=== PATIENT | female | born 1995 | race African-American/Black ===

== ENCOUNTER 2021-09-17 17:56 | Emergency (ER) | payer OTHER, SELFPAY ==
--- NOTE | ~2021-09-17 | CT_ITS ---
EXAMINATION: CT abdomen pelvis w con DATE: 09/17/2021 22:04 INDICATION: Abdominal pain, nausea and vomiting TECHNIQUE: Computed tomography (CT) of the abdomen and pelvis was performed with 100 cc Omnipaque 350 intravenous contrast. Automated exposure control and iterative reconstruction technique were employe d. Exam dose: 244.59 mGy-cm total exam DLP. COMPARISON: None. FINDINGS: Normal heart size. No pericardial or pleural effusion. The lung bases are clear. The liver, gallbladder, bile ducts, spleen, pancreas, pancreatic duct, and adrenal glands and kidneys appear normal. Normal caliber of the abdominal aorta. No intraperitoneal or retroperitoneal or pelvi c mass lesion or adenopathy or ascites. There is moderate diffuse thickening of the urinary bladder wall. Cystitis is not excluded. There is an involuting 3 cm peripherally enhancing right ovarian cyst with moderate amount of complic ated free fluid in the posterior cul-de-sac, extending into the adnexal areas, likely due to ruptured ovarian cyst. Less likely considerations include ruptured ectopic , pelvic inflammatory dis ease. No bowel obstruction or intraperitoneal free air. Included skeletal structures are unremarkable. IMPRESSION: Probable ruptured involuting right ovarian cyst with associated moderate free fluid in t he cul-de-sac extending into the adnexal areas Reviewed, dictated and finalized at [facility] Reviewed, dictated and finalized at [facility]. 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
[2021-09-17 18:06] VITALS: BP 109/64; PULSE 118; RESP 18; TEMP 37.1; O2SAT 100
--- NOTE | 2021-09-17 18:48 | ED.GENADULT ---
HPI - General Adult General Chief complaint: Nausea/Vomiting/Diarrhea Stated complaint: N/V Time Seen by Provider: 09/17/21 18:12 Source: RN notes reviewed History of Present Illness HPI narrative: Patient presents emergency room from home for nausea vomiting diarrhea. Patient states symptoms began this morning with numerous episodes of nausea vomiting as well as diarrhea. Patient states that it is associated with lower abdominal pain described as cramping she denies any fevers or chills chest pain or shortness of breath. States she not taking thing for the symptoms at home Related Data Home Medications Medication Instructions Recorded Confirmed No Home Medications 09/17/21 09/17/21 Allergies Allergy/AdvReac Type Severity Reaction Status Date / Time No Known Allergies Allergy Verified 09/17/21 18:05 Review of Systems Review of Systems: Gen.: Denies fevers or chills ENT: Denies congestion Respiratory: Denies shortness of breath or cough CV: Denies chest pain or palpitations GI: See HPI denies burning, urgency, frequency or hematuria Musculoskeletal: Denies back pain or muscle pain Neuro: Denies numbness, tingling, weakness or focal weakness Skin: Denies rash Except as documented, all other systems reviewed and negative [facility] Past Medical History Medical History (Updated 09/18/21 @ 00:00 by Chas Ortiz DO) Patient denies significant medical history Social History Social History Smoking status: Never smoker Alcohol intake: never Exam Narrative: APPEARANCE: No acute distress, nontoxic, resting in bed EYES: EOMI HEENT: Normocephalic, atraumatic, OMM RESPIRATORY: No respiratory distress Clear to auscultation bilaterally with no rhonchi wheezing or rales. CARDIOVASCULAR: Regular rate and rhythm without murmurs rubs or gallops. ABDOMINAL: Soft, nondistended tender to palpation right lower quadrant left lower quadrant tenderness right upper quadrant left upper quadrant rebound or guarding MUSCULOSKELETAl: Moves all extremities. No clubbing, cyanosis or edema. NEURO: Awake and alert. Following commands, speech normal, no focal deficits SKIN:: Warm, dry. No rashes lesions or abrasions PSYCHIATRIC: Normal affect/mood, Course Course Emergency Course: Patient didn't remain with mild sinus tachycardia in the low 100s to 100 105 she had been hydrated in the ED EKG shows sinus tachycardia with no abnormalities patient has no chest pain or shortness of breath only other vital signs from 2016 recommend the patient follow-up PCP her abdominal pain has resolved she is able to drink in the ED with no difficulty Patient states that they are feeling much better at this time. States abdominal pain has resolved. Repeat abdominal exam shows the patient's abdomen to be soft and nontender. Discussed with patient results of workup and diagnosis. Discussed need for follow-up with primary care physician, reasons to return to the emergency department in proper use of medication. Patient understands and agrees to current treatment plan Vital Signs Vital signs: Vital Signs Temperature 98.8 F 09/17/21 18:06 Pulse Rate 118 H 09/17/21 18:06 Respiratory Rate 18 09/17/21 18:06 Blood Pressure 109/64 09/17/21 18:06 Pulse Oximetry 100 09/17/21 18:06 Temperature 98.0 F 09/18/21 01:03 Pulse Rate 99 09/18/21 01:03 Respiratory Rate 12 09/18/21 01:03 Blood Pressure 112/67 09/18/21 01:03 Pulse Oximetry 100 09/18/21 01:03 Medical Decision Making MDM Narrative Medical decision making narrative: Patient's abdomen is soft without significant pain or signs of surgical abdomen on serial exams. Lab and x-ray evaluations are reviewed and patient is felt to be a reasonable candidate for outpatient management. Patient was instructed as to limitations of x-ray and laboratory evaluation and encouraged to return to ED or primary physician for repeat exam in 12 h
[2021-09-17] MEDS: SODIUM CHLORIDE 0.9% IV 1,000 ML 999 ML IV CONT ×3 (19:09→22:17)
[2021-09-17] MEDS: ONDANSETRON INJ 4 MG/2 ML VIAL IV PUSH (19:11)
[2021-09-17] MEDS: FAMOTIDINE 20 MG/2 ML VIAL IV PUSH (19:12)
[2021-09-17] MEDS: KETOROLAC 30 MG/ML VIAL (*BKC) IV PUSH (19:13)
--- NOTE | 2021-09-17 19:26 | PC.NURSE ---
called lab requesting them to receive blood work and run a CBC, CMP and lipase on pt. states they will run it.
[2021-09-17 19:33] LABS: Eosinophils Percent Auto 0.2 % (0-4.4); Hematocrit 38.9 % (37.0-47.0); Hemoglobin 12.7 g/dL (12.0-15.0); Immature Granulocyte Absolute 0.02 K/mm3 (0.00-0.031); Immature Granulocyte Percent A 0.4 % (0-0.5); Lymphocytes Absolute Auto 0.43 K/mm3 (0.9-3.2); Lymphocytes Percent Auto 9.1 % (18.3-44.2); Mean Corpuscular HGB Conc 32.6 g/dl (32-36); Mean Corpuscular Hemoglobin 27.4 pg (26-34); Mean Corpuscular Volume 83.8 fl (80-100); Mean Platelet Volume 11.1 fl (7.4-10.4); Monocytes Absolute Auto 0.3 K/mm3 (0.1-0.6); Monocytes Percent Auto 5.5 % (2.6-8.5); Neutrophils Percent Auto 84.8 % (45.5-73.1); Platelet Count Result 206 k/mm3 (150-375); Red Blood Count 4.64 M/mm3 (4.2-5.4); Red Cell Distribution Width 13.6 % (11.5-14.5); White Blood Count 4.7 K/mm3 (4.5-10.0)
[2021-09-17 19:38] LABS: Alanine Aminotransferase 15 U/L (4-35); Albumin Level 4.6 g/dL (3.5-5.1); Alkaline Phosphatase 70 U/L (38-126); Anion Gap 9 mmol/L (8-16); Aspartate Amino Transferase 32 U/L (14-36); Bilirubin,Total 0.6 mg/dL (0.2-1.3); Blood Urea Nitrogen 8 mg/dL (7-17); Calcium 9.1 mg/dL (8.4-10.2); Carbon Dioxide 23 mmol/L (22-30); Chloride 104 mmol/L (98-107); Estimated CRCL calculation 106 ml/min; Estimated Glomerular Filt Rate > 60; Glucose 101 mg/dL (65-110); Lipase 139 U/L (23-300); Potassium 3.8 mmol/L (3.4-5.0); Sodium 136 mmol/L (137-145)
--- NOTE | 2021-09-17 20:25 | PC.NURSE ---
Called lab to inform that the urine specimen has been sent and should be down in the lab. They stated they will run it.
--- NOTE | 2021-09-17 21:15 | PC.NURSE ---
Called lab again to see why urine has not resulted. They stated they will run it.
[2021-09-17 21:32] LABS: Add Urine Microscopic? YES; Appearance Urine Clear (Clear); Bilirubin Urine Negative (Negative); Blood Urine Negative (Negative); Color Urine Yellow (Yellow); Glucose Urine UA Negative (Negative); Ketones Urine 1+ mg/dL (Negative); Leukocyte Esterase Ur 2+ LEU/UL (Negative); Mucus Urine Rare /lpf; Nitrate Urine Negative (Negative); Protein Urine Negative (Negative); RBC Urine 0-2 /hpf (0-2); Specific Grav Ur 1.018 (1.001-1.035); Squamous Epithelial Cell Urine Few /hpf (Few); Urobilinogen Urine Negative mg/dL (<2.0)
[2021-09-17 21:43] VITALS: O2SAT 100
[2021-09-17 21:44] VITALS: O2SAT 100
[2021-09-17 21:45] VITALS: O2SAT 100
--- NOTE | 2021-09-17 22:08 | ECG_ITS ---
Measurements Intervals [place] Rate: 104 P: 77 TX: 196 QRS: 63 QRSD: 82 T: 45 QT: 330 QTc: 435 Interpretive Statements SINUS TACHYCARDIA RSR' IN V1 OR V2, PROBABLY NORMAL VARIANT NONSPECIFIC T-WAVE ABNORMALITY- INFERIOR LEADS BORDERLINE ECG Electronically Signed On 09-18-2021 7:07:35 RANGE TECHNICIAN by Fortino Whitlock D.O.
[2021-09-17] MEDS: MORPHINE SULFATE (*CRX) 4 MG/ML INJ IV PUSH (23:21)
[2021-09-18] MEDS: NITROFURANTOIN MONOHYD MACROCR 100 MG CAP PO (00:04)
[2021-09-18 00:17] VITALS: BP 112/67; PULSE 98; RESP 18; O2SAT 100
[2021-09-18 01:03] VITALS: BP 112/67; PULSE 99; RESP 12; TEMP 36.7; O2SAT 100
== END 2021-09-18 01:05 | disposition home or self-care (01) ==
PROVIDERS: Emergency Medicine; Emergency Provider Emergency Medicine; PCP Emergency Medicine
DX: N39.0 Urinary tract infection, site not specified (principal); N83.201 Unspecified ovarian cyst, right side; R11.2 Nausea with vomiting, unspecified; R10.9 Unspecified abdominal pain; R00.0 Tachycardia, unspecified; R94.31 Abnormal electrocardiogram [ECG] [EKG]
CPT/HCPCS: 36415; 74177; 80053; 81001; 81025; 83690; 85025; 93005; 96361; 96374; 96375; 99284; A9270; J1885; J2270; J2405; J7030; Q9967

== ENCOUNTER 2022-10-19 15:49 | Emergency (ER) | payer OTHER, SELFPAY ==
--- NOTE | ~2022-10-19 | XR_ITS ---
EXAMINATION: XR foot LT min 3V DATE: 10/19/2022 16:15 INDICATION: Left foot injury. TECHNIQUE: 4 views of left foot were obtained. COMPARISON: None. FINDINGS: Bone alignment is normal. No fracture. There is mild osteoarthritis of talonavicular joint. IMPRESSION: 1. No fracture. Reviewed, dictated and finalized at [facility]. 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 No fracture.
[2022-10-19 15:58] VITALS: BP 117/70; PULSE 100; RESP 14; TEMP 37.2; O2SAT 100
--- NOTE | 2022-10-19 16:35 | ED.LOWEXIN ---
HPI - Extremity Injury (Lower) General Chief Complaint: Extremity Injury, Lower Stated Complaint: Left Foot Pain Time Seen by Provider: 10/19/22 16:35 Source: patient, RN notes reviewed and old records reviewed Mode of arrival: ambulatory Limitations: no limitations History of Present Illness HPI Narrative: 27-year-old female presents to the [facility] with left toe pain on toes 1 2 and 5. Patient states a couple of days ago she scraped toes 1 and 2 on something and has abrasions. No swelling, erythema or bruising noted to them. States yesterday she hit her small toe on the corner of a wall, has bruising, swelling and part of the toenail is missing. No bleeding noted Onset (ago): day(s) Related Data Home Medications Medication Instructions Recorded Confirmed No Home Medications 09/17/21 10/19/22 Allergies Allergy/AdvReac Type Severity Reaction Status Date / Time No Known Allergies Allergy Verified 10/19/22 16:05 Review of Systems Review of Systems: All systems reviewed & are unremarkable except as noted in HPI and below Constitutional: Constitutional: Reports no additional constitutional complaints Eyes: Eyes: Reports no additional eye complaints ENT: Reports system reviewed and no additional complaints, except as documented Cardiovascular: Cardiovascular: Reports no additional cardiovascular complaints, Denies chest pain and Denies dyspnea Respiratory: Respiratory: Reports no additional respiratory complaints, Denies chest congestion, Denies cough and Denies dyspnea Gastrointestinal: Gastrointestinal: Reports no additional gastrointestinal complaints, Denies abdominal pain, Denies nausea and Denies vomiting Musculoskeletal: Musculoskeletal: Reports as per HPI Integumentary/Breasts: Skin/Breast: Reports as per HPI Neurologic: Reports system reviewed and no additional complaints, except as documented Psychiatric: Psychiatric: Reports no additional psychiatric complaints Allergic/Immunologic: Allergic/Immunologic: Reports no additional allergic/immunologic complaints [facility] Past Medical History Medical History Patient denies significant medical history Social History Social History Smoking status: Never smoker Alcohol intake: never Comments At the time of my signature, I reviewed and agree with the nursing past medical, surgical, social, and family history. There is no relevant family history pertinent to the patient complaint. Exam Const: General: cooperative, healthy appearing, comfortable, no acute distress, well developed, alert and well nourished Nutritional Appearance: well nourished Orientation/consciousness: patient oriented x3 Limitations: no limitations HENMT: Head: normal to inspection Ears: hearing grossly normal bilaterally and external ears normal Face/Nose/Sinus: Normal external nose present, Normal nares present, Normal nasal mucous membranes and turbinates present and normal facial exam Face and sinus: normal facial exam Mouth: Yes Normal oral and palatal mucosa present, Yes lip normal and Yes moist mucous membranes Eyes: General: appearance normal, both eyes and all related structures Alignment and Position: alignment normal Periorbital: periorbital findings normal Conjunctivae: conjunctivae normal Pupils: Equal, round and reactive pupils present EOM: EOMs intact bilaterally Neck: Neck: normal visual inspection, full ROM, no lymphadenopathy and no meningeal signs Chest: Chest palpation & inspection: normal inspection of the chest Resp: Effort & Inspection: normal respiratory effort and able to speak in complete sentences Auscultation: clear to auscultation bilaterally, no crackles, no rales, no rhonchi and no wheezes Cardio: Rate: regular rate Rhythm: regular rhythm Back/Spine/Pelvis: Cervical Spine: cervical ROM normal Thoracic/Lumbar Spine: No thoracic sp
== END 2022-10-19 16:55 | disposition home or self-care (01) ==
PROVIDERS: Emergency Provider Nurse Practitioner; PCP Emergency Medicine
DX: S90.412A Abrasion, left great toe, initial encounter (principal); S90.415A Abrasion, left lesser toe(s), initial encounter; X58.XXXA Exposure to other specified factors, initial encounter; S91.205A Unspecified open wound of left lesser toe(s) with damage to nail, initial encounter; W22.01XA Walked into wall, initial encounter
CPT/HCPCS: 73630; 99213; G0463

== ENCOUNTER 2023-01-26 01:41 | Emergency (ER) | payer OTHER, SELFPAY ==
--- NOTE | ~2023-01-26 | US_ITS ---
Pelvic ultrasound. Clinical History: First trimester , vaginal bleeding Technique: Realtime transabdominal and transvaginal scanning of the pelvis was performed. Color flow Doppler and Doppler spectral analysis were performed. Findings: The uterus is retroverted, and contains an intrauterine gestation. With yolk sac and pole are present. Sumpter-rump length of 5 mm corresponds to an estimated gestational age of 6 weeks 2 days. heart rate is 117 bpm. The right ovary measures 4.0 x 2.5 x 2.6 cm. No significant right ovarian or adnexal mass is seen. The left ovary measures 2.7 x 1.6 x 1.5 cm. No significant left ovarian or adnexal mass is seen. There is small amount of free fluid about the right ovary. Impression: Live intrauterine gestation with estimated gestational age of 6 weeks 2 days. heart rate is 117 bpm. Small amount of free fluid about the right ovary. Reviewed, dictated and finalized at [facility]. Impression: Live intrauterine gestation with estimated gestational age of 6 weeks 2 days. F etal heart rate is 117 bpm. Small amount of free fluid about the right ovary.
[2023-01-26 01:43] VITALS: BP 123/67; PULSE 92; RESP 14; TEMP 36.9; O2SAT 100
--- NOTE | 2023-01-26 01:57 | ED.PREGNANCY ---
HPI - General Chief complaint: Vaginal Bleeding Stated complaint: 6weeks , spotting, cramping Time Seen by Provider: 01/26/23 01:48 History of Present Illness HPI Narrative: 27-year-old female, who is currently 6 weeks , LMP 12/15, reports for evaluation of vaginal bleeding that started 5 hours prior to arrival. Patient reports the bleeding is light and has not required her to wear a pad. States she had some bleeding in her underwear but mostly it has been when she wipes and on toilet paper. She reports associated abdominal cramping earlier which has since resolved. Denies back pain, fever, vaginal discharge, concern for STDs, nausea or vomiting, diarrhea. She denies vaginal bleeding during her up until this point. Patient reports she has an appointment with her ACTIVITIES ASSISTANT in 2.5 weeks. Related Data Home Medications Medication Instructions Recorded Confirmed No Home Medications 09/17/21 10/19/22 Allergies Allergy/AdvReac Type Severity Reaction Status Date / Time No Known Allergies Allergy Verified 01/26/23 01:42 Review of Systems Review of Systems: CONSTITUTIONAL: Denies fever, chills EYES: Denies visual changes, redness, or discharge. ENT: Denies rhinorrhea, congestion, sore throat, or otalgia. CARDIOVASCULAR: Denies chest pain, palpitations, or edema. RESPIRATORY: Denies cough or dyspnea. GASTROINTESTINAL: See HPI GENITOURINARY: Denies dysuria or hematuria. SKIN: Denies rash or itching. MUSCULOSKELETAL: Denies back pain, joint pain, or myalgia. NEUROLOGIC: Denies headache, numbness, dizziness, or weakness. PSYCHIATRIC: Denies anxiety or depression. [facility] Past Medical History Medical History Patient denies significant medical history Social History Social History Smoking status: Never smoker Alcohol intake: never Exam Narrative: GENERAL: Well-appearing, in no acute distress. HEAD: Normocephalic EYES: PERRLA ENT: Nares clear. Mucous membranes moist. Oropharynx without tonsillar hypertrophy exudate or other lesions. NECK: Supple. CHEST: No respiratory distress. Clear to auscultation, no adventitious breath sounds. HEART: Regular rate and rhythm. No murmur heard. Normal peripheral pulses. ABDOMEN: Soft, nontender, normal active bowel sounds. LIGHT CLEANER: No rashes or lesions to external genitalia, vaginal canal or cervix. Scant amount of white discharge in vaginal canal, no blood. Cervical os closed. No CMT. No adnexal tenderness or masses appreciated. EXTREMITIES: Normal range of motion. No edema. SKIN: Warm, dry, no rash. NEURO: No focal deficits. Alert and oriented x3. PSYCH: Normal mood and affect. Course Vital Signs Vital signs: Vital Signs Temperature 36.9 C 01/26/23 01:43 Pulse Rate 92 01/26/23 01:43 Respiratory Rate 14 01/26/23 01:43 Blood Pressure 123/67 01/26/23 01:43 Pulse Oximetry 100 01/26/23 01:43 Oxygen Delivery Room Air 01/26/23 01:43 Temperature 36.9 C 01/26/23 01:43 Pulse Rate 92 01/26/23 01:43 Respiratory Rate 14 01/26/23 01:43 Blood Pressure 123/67 01/26/23 01:43 Pulse Oximetry 100 01/26/23 01:43 Oxygen Delivery Room Air 01/26/23 01:43 MDM - OB/Uterine Contractions MDM Narrative Medical decision making narrative: 27-year-old female, who is currently 6 weeks , LMP 12/15, reports for evaluation of vaginal bleeding that started 5 hours prior to arrival. Bleeding is light and has not required her to wear a pad. Vital stable. Exam reveals soft nontender abdomen. Pelvic exam with scant amount of white discharge in vaginal canal, no blood, cervical os closed. CBC shows a mild normocytic anemia with a hemoglobin of 11.4. Patient's blood type B+, therefore RhoGAM not needed. Coags normal. Beta hCG level 13,136. Ultrasound to evaluate for ectopic or
[2023-01-26 02:07] LABS: Basophils Percent Auto 0.6 % (0.2-1.2); Eosinophils Absolute Auto 0.1 K/mm3 (0-0.3); Eosinophils Percent Auto 1.7 % (0-4.4); Hematocrit 34.8 % (37.0-47.0); Hemoglobin 11.4 g/dL (12.0-15.0); Immature Granulocyte Absolute 0.02 K/mm3 (0.00-0.031); Immature Granulocyte Percent A 0.3 % (0-0.5); Lymphocytes Absolute Auto 2.47 K/mm3 (0.9-3.2); Lymphocytes Percent Auto 34.5 % (18.3-44.2); Mean Corpuscular HGB Conc 32.8 g/dl (32-36); Mean Corpuscular Hemoglobin 28.1 pg (26-34); Mean Corpuscular Volume 85.9 fl (80-100); Monocytes Absolute Auto 0.7 K/mm3 (0.1-0.6); Monocytes Percent Auto 9.6 % (2.6-8.5); Neutrophils Absolute Auto 3.8 K/mm3 (1.3-6.7); Neutrophils Percent Auto 53.3 % (45.5-73.1); Platelet Count Result 273 k/mm3 (150-375); Red Blood Count 4.05 M/mm3 (4.2-5.4); Red Cell Distribution Width 13.7 % (11.5-14.5); White Blood Count 7.2 K/mm3 (4.5-10.0)
[2023-01-26 02:40] LABS: Prothrombin Time 13.7 Seconds (11.1-14.7)
[2023-01-26 02:41] LABS: Partial Thromboplastin Time 27.9 SECONDS (22.3-36.8)
[2023-01-26] MEDS: SODIUM CHLORIDE 0.9% IV 1,000 ML 999 ML IV CONT (03:03)
== END 2023-01-26 05:00 | disposition home or self-care (01) ==
PROVIDERS: Physician Assistant; Emergency Provider Emergency Medicine; PCP Emergency Medicine
DX: O20.0 Threatened abortion (principal); Z3A.01 Less than 8 weeks gestation of pregnancy
CPT/HCPCS: 36415; 76801; 76817; 84702; 85025; 85461; 85610; 85730; 86850; 86900; 86901; 96360; 96361; 99284; J7030

== ENCOUNTER 2023-05-14 10:43 | Emergency (ER) | payer OTHER, SELFPAY ==
[2023-05-14 10:57] VITALS: BP 125/67; PULSE 128; RESP 16; TEMP 38.4; O2SAT 98
--- NOTE | 2023-05-14 11:04 | ED.URI ---
HPI - URI/Sore Throat General Chief Complaint: Upper Respiratory Infection Stated Complaint: headache,stuffy nose,bodyaches Time Seen by Provider: 05/14/23 11:00 Source: patient Mode of arrival: ambulatory Limitations: no limitations History of Present Illness HPI Narrative: Lilliana is a 27-year-old female patient presenting to the clinic today with complaints fever, headache, stuffy nose, and body aches times 3 days. She denies any known exposure to anyone with COVID, flu, or strep. MD elicited complaint: fever, nasal congestion and other (Headache, body aches) Related Data Home Medications Medication Instructions Recorded Confirmed [id number] 1 mg 1 tablet PO DAILY 05/14/23 05/14/23 tablet Allergies Allergy/AdvReac Type Severity Reaction Status Date / Time No Known Allergies Allergy Verified 05/14/23 10:58 Review of Systems Review of Systems: Pertinent positives per HPI. Patient denies any rash, visual changes, dizziness, shortness of breath, chest pain, palpitations, nausea, vomiting, diarrhea, constipation, abdominal pain, or any urinary issues. [facility] Past Medical History Medical History Patient denies significant medical history Social History Social History Smoking status: Never smoker Alcohol intake: never Comments At the time of my signature, I reviewed and agree with the nursing past medical, surgical, social, and family history. There is no relevant family history pertinent to the patient complaint. Exam Narrative: General: Well-developed, well nourished, ill-appearing Head: Normocephalic, atraumatic Eyes: Pupils equally round and reactive to light bilaterally, EOM intact, sclera and conjunctive clear, no discharge, lids normal Ears: TMs intact and clear, ear canals clear, no drainage, grossly hearing normal. Nose: Nares patent, clear nasal discharge, mild inflammation, no sinus tenderness. Mouth: Oral pharynx red without lesions or masses, good dentition, MMM. Neck: Supple, trachea midline, no enlargement of anterior or posterior cervical nodes, no thyroid masses or goiter palpable. Cardio: Regular rate and rhythm, s1 and s2 normal, no murmur appreciated. Resp: Clear to auscultation bilaterally, no rhonchi, rales, wheezing or rubs Course Course Emergency Course: Portions of this record may have been created with voice recognition software. Level of Care: Express Care Visit Vital Signs Vital signs: Vital Signs Temperature 38.4 C H 05/14/23 10:57 Pulse Rate 128 H 05/14/23 10:57 Respiratory Rate 16 05/14/23 10:57 Blood Pressure 125/67 05/14/23 10:57 Pulse Oximetry 98 05/14/23 10:57 Oxygen Delivery Room Air 05/14/23 10:57 Temperature 38.4 C H 05/14/23 10:57 Pulse Rate 128 H 05/14/23 10:57 Respiratory Rate 16 05/14/23 10:57 Blood Pressure 125/67 05/14/23 10:57 Pulse Oximetry 98 05/14/23 10:57 Oxygen Delivery Room Air 05/14/23 10:57 Vital signs reviewed MDM - URI/Sore Throat MDM Narrative Medical decision making narrative: At the time of visit patient is resting comfortably on the exam table. COVID, flu, and strep test were performed. COVID test was positive. Strep and flu were negative. Supportive measures were discussed with the patient she voiced understanding discharge instructions agrees to treatment plan. Differential Diagnosis Differential diagnosis: Likely upper respiratory infection, otitis media, sinusitis, viral infection, bronchitis, influenza, pharyngitis and other (COVID) Discharge Plan Discharge Clinical Impression: COVID-19 Patient Disposition: Home, Self-Care Condition: Stable Instructions: Antibiotic Form, How to Recover from COVID-19 at Home (ED) Additional Instructions: Covid test is positive in the clinic today. Strep and influenza testing was negative.
== END 2023-05-14 11:30 | disposition home or self-care (01) ==
PROVIDERS: Emergency Provider Nurse Practitioner Family; PCP Emergency Medicine
DX: U07.1 COVID-19 (principal)
CPT/HCPCS: 87081; 87426; 87804; 87880; 99213; C9803; G0463

== ENCOUNTER 2023-08-09 00:43 | Observation (INO) | payer OTHER, SELFPAY ==
[2023-08-09] VITALS (29 sets, daily range): BP systolic 106–122; BP diastolic 62–70; PULSE 96–122; RESP 16; TEMP 36.9–37; O2SAT 97–100; BMI 31.2
--- NOTE | ~2023-08-09 | US_ITS ---
EXAMINATION: US OB BPP wo non-stress DATE: 08/09/2023 07:35 INDICATION: Nonreactive nonstress test, third trimester TECHNIQUE: Real-time pelvic ultrasound was performed. The interpreting radiologist was not present fo r the study. COMPARISON: None. FINDINGS: There is a single living fetus in vertex presentation. The placenta is fundal/right. heart rate is 139 beats per minute (bpm). Biophysical profile performed by the technologist: breathing (30 sec sustained breathing in 30 minutes): 2 out of 2 movement (3 gross body movements in 30 minutes): 2 out of 2 tone (one episode of [id number] limb movement): 2 out of 2 Amniotic fluid pocket (2 cm): 2 out of 2 Total score: 8 out of 8 IMPRESSION: 1. Single living fetus in vertex presentation. 2. Biophysical profile 8 out of 8. Reviewed, dictated and finalized at [facility]. CHIEF
--- NOTE | 2023-08-09 01:16 | OBADM ---
This patient, Lilliana Jesus, admitted to the OB room OB Post 113 for observation. Patient/family oriented to hospital policies and general routines including ID bracelet, bed and alarms, visiting hours, pain management, procedures, bathroom and other care routines, personal items, smoking policy, room service/diet, and visiting hours. Patient/Family are encouraged to report perceived risks to care and to ask questions if they do not understand what they are told or what they should do.
[2023-08-09] MEDS: DEXTROSE 5%/LACTATED RINGERS 1,000 ML 999 ML IV CONT (01:59)
[2023-08-09] MEDS: FAMOTIDINE 20 MG/2 ML VIAL IV PUSH (02:00)
[2023-08-09] MEDS: ONDANSETRON INJ 4 MG/2 ML VIAL 8 MG IV PUSH (02:00)
[2023-08-09 02:27] LABS: Appearance Urine Clear (Clear); Bacteria Urine 1+ /hpf; Bilirubin Urine Negative (Negative); Blood Urine Negative (Negative); Color Urine Yellow (Yellow); Glucose Urine UA Negative (Negative); Ketones Urine 4+ mg/dL (Negative); Leukocyte Esterase Ur 1+ LEU/UL (Negative); Nitrate Urine Negative (Negative); Non Pathogenic Casts 0-2; Protein Urine Trace mg/dL (Negative); RBC Urine 0-2 /hpf (0-2); Specific Grav Ur 1.026 (1.001-1.035); Squamous Epithelial Cell Urine Few /hpf (Few); pH Urine 6.5 (5.0-9.0)
[2023-08-09 02:29] LABS: Add Urine Microscopic? YES
[2023-08-09] MEDS: ONDANSETRON INJ 4 MG/2 ML VIAL (06:50)
--- NOTE | 2023-08-09 07:54 | PC.NURSE ---
Report to Dr. Mariano re: BPP 04/03, strip reviewed with him and reported meds given. States he will go see pt. at this time.
[2023-08-09] MEDS: FLUCONAZOLE 100 MG TABLET 200 MG PO (08:10)
--- NOTE | 2023-08-09 08:35 | P.PNOB_ITS ---
OB - Triage/Final Diagnosis Visit Information Reason for evaluation: other ( nausea and vomiting, back pain) Comments/Additional reasons for admission: I have assessed the risk for this patient, Lilliana Jesus, and determined that she would benefit from observation care. Evaluation Laboratory results: Laboratory Tests 08/09/23 02:10 Urine Color Yellow Urine Appearance Clear Urine pH 6.5 Ur Specific [place] 1.026 Urine Protein Trace Urine Glucose (UA) Negative Urine Ketones 4+ H Ur Blood (Man) Negative Urine Nitrate Negative Urine Bilirubin Negative Urine Urobilinogen 1.0 Leukocyte Esterase Rfl 1+ H Urine RBC 0-2 Urine WBC 6-10 H Ur Squamous Epith Cells Few Urine Bacteria 1+ H Urine Casts 0-2 Vital signs: Vital Signs - 24 hr 08/09/23 01:15 08/09/23 01:20 08/09/23 01:30 Temperature 98.6 F Pulse Rate 112 H 116 H Respiratory Rate 16 Blood Pressure 116/69 106/70 Pulse Oximetry Oxygen Delivery Room Air 08/09/23 01:45 08/09/23 01:48 08/09/23 01:53 Temperature Pulse Rate 122 H Respiratory Rate Blood Pressure 109/66 Pulse Oximetry 100 100 Oxygen Delivery 08/09/23 01:58 08/09/23 02:03 08/09/23 03:40 Temperature Pulse Rate Respiratory Rate Blood Pressure Pulse Oximetry 100 100 97 Oxygen Delivery 08/09/23 03:48 08/09/23 03:53 08/09/23 03:58 Temperature Pulse Rate Respiratory Rate Blood Pressure Pulse Oximetry 98 99 100 Oxygen Delivery 08/09/23 04:03 08/09/23 04:08 08/09/23 04:13 Temperature Pulse Rate Respiratory Rate Blood Pressure Pulse Oximetry 98 99 98 Oxygen Delivery 08/09/23 04:18 08/09/23 04:23 08/09/23 04:28 Temperature Pulse Rate Respiratory Rate Blood Pressure Pulse Oximetry 98 99 98 Oxygen Delivery 08/09/23 04:33 08/09/23 04:38 08/09/23 04:43 Temperature Pulse Rate Respiratory Rate Blood Pressure Pulse Oximetry 98 98 98 Oxygen Delivery 08/09/23 04:48 08/09/23 04:53 08/09/23 04:58 Temperature Pulse Rate Respiratory Rate Blood Pressure Pulse Oximetry 97 98 97 Oxygen Delivery 08/09/23 05:03 08/09/23 05:08 08/09/23 05:13 Temperature Pulse Rate Respiratory Rate Blood Pressure Pulse Oximetry 98 99 98 Oxygen Delivery 08/09/23 05:18 08/09/23 05:23 08/09/23 05:30 Temperature 98.4 F Pulse Rate 104 H Respiratory Rate 16 Blood Pressure 122/62 Pulse Oximetry 97 99 Oxygen Delivery Comments: NST nonreactive, BPP 8/8
--- NOTE | 2023-08-09 09:22 | PC.NURSE ---
0919--IV DC'd at this time, WNL, and DC paperwork reviewed with pt., pt. verbalizes understanding.
== END 2023-08-09 09:23 | disposition home or self-care (01) ==
PROVIDERS: Admitting Provider Student in an Organized Health Care Education/Training Program; PCP Emergency Medicine; Visit Provider Student in an Organized Health Care Education/Training Program
DX: O21.2 Late vomiting of pregnancy (principal); O26.893 Other specified pregnancy related conditions, third trimester; M54.9 Dorsalgia, unspecified; Z3A.33 33 weeks gestation of pregnancy
CPT/HCPCS: 76819; 81001; 87086; 96374; 96375; 96376; A9270; G0378; G0379; J2405; J7121

== ENCOUNTER 2023-08-30 18:00 | Emergency (ER) | payer OTHER, MEDICAID, SELFPAY ==
[2023-08-30 18:19] VITALS: BP 119/59; PULSE 136; RESP 20; O2SAT 100
--- NOTE | 2023-08-30 18:24 | ED.URI ---
HPI - URI/Sore Throat General Chief Complaint: Upper Respiratory Infection Stated Complaint: chills,headache,cough,tired Time Seen by Provider: 08/30/23 19:11 Source: patient Mode of arrival: ambulatory Limitations: no limitations History of Present Illness HPI Narrative: 28-year-old female presents with complaint of fatigue, body aches, chills, headache, cough and congestion starting today. Did not check her temperature prior I will to arrival to [facility]. Was unaware that she had fever. Has not taking any ddtb-vui-pumsoec medications to treat her symptoms. Patient reports that she works at an [employer] and is exposed to COVID and flu. Patient is 38 weeks . Denies contractions, vaginal bleeding. Reports frequently feeling baby move. Did not call her OBGYN to discuss symptoms. No chest pain or shortness of breath. All systems reviewed and negative except as noted above. Related Data Home Medications Medication Instructions Recorded Confirmed No Home Medications 08/30/23 08/30/23 Allergies Allergy/AdvReac Type Severity Reaction Status Date / Time No Known Allergies Allergy Verified 08/30/23 18:31 Review of Systems Review of Systems: CONSTITUTIONAL: Denies fever . Reports chills,, fatigue or sweats. EYES: Denies visual changes, redness, or discharge. ENT: reportsrhinorrhea, congestion. Denies sore throat, or otalgia. CARDIOVASCULAR: Denies chest pain, palpitations, or edema. RESPIRATORY: reports cough, chest congestion. Denies dyspnea. GASTROINTESTINAL: Denies abdominal pain, nausea, vomiting, or diarrhea. GENITOURINARY: Denies dysuria or hematuria. SKIN: Denies rash or itching. MUSCULOSKELETAL: Denies back pain, joint pain. Reports myalgia. NEUROLOGIC: Denies headache, numbness, or weakness. PSYCHIATRIC: Denies anxiety or depression. All other systems reviewed are negative, except as documented in HPI. [facility] Past Medical History Medical History Patient denies significant medical history Social History Social History Smoking status: Never smoker Alcohol intake: never Comments At time of signature, agree with nursing past medical, surgical, social and family history. There is no relevant family history pertinent to the presenting complaint. Exam Narrative: GENERAL: This is a well-nourished, well-developed patient. Patient ill-appearing but in no acute distress. HEAD: normocephalic, atraumatic. EYES: PERRL. Sclera clear/white. Vision is grossly intact. EARS: External ears normal, auditory canals clear and without drainage, TMs normal without perforation. Hearing grossly intact. NOSE: External nose normal with Clear nasal drainage, mild erythema to bilateral nares. THROAT: Mucous membranes moist, Clear postnasal drainage NECK: Neck supple, non-tender without lymphadenopathy, masses or thyromegaly. CARDIOVASCULAR: tachycardia and rhythm without murmurs, gallops, or rubs. heart rate 110 RESPIRATORY: Clear to auscultation. Breath sounds equal bilaterally. No wheezes, rales, or rhonchi. SKIN: warm, Dry, intact with no suspicious lesions or rash, good texture and turgor. NEURO: awake, alert, and oriented to person, place and time. There were no obvious focal neurologic abnormalities. EXTREMITIES: No joint tenderness, effusion, or edema noted. Course Course Level of Care: Express Care Visit Vital Signs Vital signs: Vital Signs Pulse Rate 136 H 08/30/23 18:19 Respiratory Rate 20 08/30/23 18:19 Blood Pressure 119/59 L 08/30/23 18:19 Pulse Oximetry 100 08/30/23 18:19 Oxygen Delivery Room Air 08/30/23 18:19 Temperature 37.7 C H 08/30/23 19:16 Pulse Rate 110 H 08/30/23 19:16 Respiratory Rate 20 08/30/23 18:19 Blood Pressure 119/59 L 08/30/23 18:19 Pulse Oximetry 100 08/30/23 18:19 Oxygen Delivery Room Air
[2023-08-30 18:28] VITALS: TEMP 38.4
[2023-08-30] MEDS: ACETAMINOPHEN 500 MG TABLET 1000 MG PO (18:28)
[2023-08-30 19:16] VITALS: PULSE 110; TEMP 37.7
== END 2023-08-30 19:24 | disposition home or self-care (01) ==
PROVIDERS: Emergency Provider Nurse Practitioner Family
DX: J06.9 Acute upper respiratory infection, unspecified (principal); Z20.822 Contact with and (suspected) exposure to COVID-19
CPT/HCPCS: 87426; 87804; 99213; A9270; C9803; G0463

== ENCOUNTER 2025-01-01 19:35 | Emergency (ER) | payer OTHER, SELFPAY ==
--- NOTE | ~2025-01-01 | XR_ITS ---
HISTORY: pain x 8 hours, no injury COMPARISON: None TECHNIQUE: 3 views of the right knee were performed FINDINGS: No acute or subacute fracture. Trace medial tibiofemoral joint space narrowing is identified. No suprapatellar joint effusion is identified. The infrapatellar joint space is clear. IMPRESSION: Trace degenerative disease, without acute fracture. Reviewed, dictated and finalized at location A.
--- NOTE | 2025-01-01 19:41 | ED.LOWEXIN ---
HPI - Extremity Injury (Lower) General Chief Complaint: Extremity Injury, Lower Stated Complaint: right knee pain Time Seen by Provider: 01/01/25 19:45 Source: patient, RN notes reviewed and old records reviewed Mode of arrival: ambulatory Limitations: no limitations History of Present Illness HPI Narrative: 29-year-old female presents to the [facility] with complaints of right knee pain. Symptoms started at noon today. Denies any trauma. No erythema, ecchymosis noted Related Data Home Medications ?Medication ?Instructions ?Recorded ?Confirmed ?Last Taken ?Type No Home Medications 08/30/23 01/01/25 Unknown History Allergies Allergy/AdvReac Type Severity Reaction Status Date / Time No Known Allergies Allergy Verified 01/01/25 19:36 Review of Systems Review of Systems: All systems reviewed & are unremarkable except as noted in HPI and below Constitutional: Constitutional: Reports no additional constitutional complaints ENT: Reports system reviewed and no additional complaints, except as documented Cardiovascular: Cardiovascular: Reports no additional cardiovascular complaints, Denies chest pain and Denies dyspnea Respiratory: Respiratory: Reports no additional respiratory complaints, Denies chest congestion, Denies cough and Denies dyspnea Musculoskeletal: Musculoskeletal: Reports as per HPI, Reports arthralgias and Denies joint swelling Integumentary/Breasts: Skin/Breast: Reports system reviewed and no additional complaints, except as docu PMFSH Past Medical History Medical History Patient denies significant medical history Social History Social History Smoking status: Never smoker Alcohol intake: never Comments At the time of my signature, I reviewed and agree with the nursing past medical, surgical, social, and family history. There is no relevant family history pertinent to the patient complaint. Exam Const: General: cooperative, healthy appearing, comfortable, no acute distress, well developed, alert and well nourished Nutritional Appearance: well nourished Orientation/consciousness: patient oriented x3 Limitations: no limitations HENMT: Head: normal to inspection Eyes: General: appearance normal, both eyes and all related structures Alignment and Position: alignment normal Neck: Neck: normal visual inspection, full ROM, no lymphadenopathy and no meningeal signs Chest: Chest palpation & inspection: normal inspection of the chest Resp: Effort & Inspection: normal respiratory effort and able to speak in complete sentences Cardio: Rate: regular rate Skin: General skin exam: normal color and no rashes or lesions noted Neuro: General: patient oriented x3, moves all extremities and no meningeal signs Cognition (Neuro): normal cognition Speech: normal speech Extrem: General: normal to inspection, full ROM and capillary refill normal Right lower extremity: full ROM, normal capillary refill, knee Details: tenderness (Anterior just below patella), normal ROM and knee ligament exam normal; no swelling, no abrasions, no lacerations, no ecchymosis, no crepitus, no foreign bodies, no penetrating wound and no deformity and lower leg Details: normal to inspection and no edema; no erythema, no tenderness and no localized swelling Psych: Appearance: grossly normal and well kempt Mental Status: mental status grossly normal Speech and movement: Normal speech and movement present and Clear speech present Affect: normal affect Attitude: cooperative Course Course Level of Care: Express Care Visit Vital Signs Vital signs: Vital Signs Temperature 98.4 F 01/01/25 19:44 Pulse Rate 98 01/01/25 19:44 Respiratory Rate 16 01/01/25 19:44 Blood Pressure 116/68 01/01/25 19:44 Pulse Oximetry 100 01/01/25 19:44 Oxygen Delivery Room Air 01/01/25 19:44 Temperature 98.4 F 01/01/25 19:44 Pulse Rate 98 01/01/25 19:44 Respiratory Rate 16 01/01/25 19:44 Blood Pressure 116/68 01/01/25 19:44 Pulse Oximetry 100 01/01/25 19:44 Oxygen Delivery Room Air 01/01/25 19:44 Reviewed MDM - Extremity Injury (Lower) MDM Narrative Medical decision making narrative: Patient sitting in exam room. Patient is nontoxic in appearance, vitals are stable. Patient presents with knee pain since noon today. No treatment prior to arrival X-ray shows no acute finding Patient is appropriate for outpatient treatment with close follow-up Differential Diagnosis Differential diagnosis: Likely other (Knee sprain, strain, bursitis,) Imaging Data Radiologist's impression: HISTORY: pain x 8 hours, no injury COMPARISON: None TECHNIQUE: 3 views of the right knee were performed FINDINGS: No acute or subacute fracture. Trace medial tibiofemoral joint space narrowing is identified. No suprapatellar joint effusion is identified. The infrapatellar joint space is clear. IMPRESSION: Trace degenerative disease, without acute fracture. Critical Care Time Critical Care Time Critical Care Time: No Discharge Plan Discharge Clinical Impression: Acute knee pain Patient Disposition: Home Condition: Stable Instructions: Antibiotic Form, Knee Pain (ED) Additional Instructions: Your Xray did not show a fracture. Wear good supportive shoes at all times. Ice should be applied to help reduce swelling. It can be used for 20 to 30 minutes, every 2-3 hours while awake. Do not apply ice directly to your skin. Wear an Armando wrap or a neoprene any support. You can alternate ibuprofen 600mg and Tylenol 650mg every 4 hours as needed for pain Please schedule a follow-up visit with your personal physician for further evaluation and treatment within 2 weeks especially if symptoms persist. For new or worsening symptoms go directly to the emergency room Patient Language: Burmese Prescriptions: No Action No Home Medications Follow-up/Referrals: David Coley MD [Primary Care Provider] - 2 Weeks (express care follow up ) Stand Alone Forms: Work/School Release IP Time of Disposition: 20:24
[2025-01-01 19:44] VITALS: BP 116/68; PULSE 98; RESP 16; TEMP 36.9; O2SAT 100
== END 2025-01-01 20:27 | disposition home or self-care (01) ==
PROVIDERS: Emergency Provider Nurse Practitioner; PCP Emergency Medicine
DX: M25.561 Pain in right knee (principal)
CPT/HCPCS: 73562; 99213; G0463

== ENCOUNTER 2025-01-02 21:16 | Emergency (ER) | payer OTHER, SELFPAY ==
--- NOTE | ~2025-01-02 | XR_ITS ---
XR knee RT min 4V Ordering provider: Lalo Bell MD History: . knee pain . Comparison: None. FINDINGS: BONES: No acute fracture or dislocation. JOINT SPACES: Normal. SOFT TISSUES: Normal. IMPRESSION: No acute osseous abnormality right knee. Reviewed, dictated and finalized at location A.
--- OUTSIDE RECORDS SUMMARY | 2025-01-02 21:19 | XMS_ITS | Clinical Summary ---
Author Organization [facility] Address [address] [place] [address] Phone Care Team Providers Care Scruff Worker Name Role Phone Unavailable Primary Care Provider Unavailabl e Allergies No known active allergies Medications vits15/iron/foli c/dss ( VIT 35-DQBA-PETEB-DS S ORAL) Take by mouth. Active ondansetron (ZOFRAN) 4 mg Tablet Take 1 Tablet (4 mg) by mouth every 8 hours as needed for Nausea/Emes is. 60 Tablet 1 09/23/2024 Active Active Problems Estimated Date of Delivery Comme nts Yes 05/01/2025 No known active problems Resolved Problems Problem Noted Date Diagnosed Date Resolved Date Abnormal Pap smear of cervix 09/23/2024 09/23/2024 Iron deficiency anemia during 09/23/2024 09/23/2024 Encounters Date Type Department Care Team Description 11/25/2024 External Device Data [facility] Provider, Abstract 11/17/2024 [facility] [place] [address] [address] Mackenzie Portillo MD No Show 11/04/2024 External Device Data [facility] Provider, Abstract 11/04/2024 External Device Data [facility] Provider, Abstract 10/21/2024 External Device Data [facility] Provider, Abstract 10/21/2024 [facility] [address] [address] Mackenzie Portillo MD No Show 10/15/2024 External Device Data [facility] Provider, Abstract from Last 3 Months Immunizations Immunization Administration Dates Next Due (ADACEL/BOOSTRIX)(10 YR UP) TDAP VACCINE, 0.5ML, IM 07/03/2023 (M-M-R II/PRIORIX)(12 MO UP) MEASLES, MUMPS AND RUBELLA VIRUS VACCINE, 0.5 ML IM/SUBCUT 03/07/2003 Dt Dtp Dtap Vaccine 03/07/2003 Poliovirus Vaccine, Unspecified Formulation 02/24 Family History Medical History Relation Name Comments Hypertension Father Heart Disease Maternal Grandmother Relation Name Status Comments Father Maternal Grandmother Social History Tobacco Use Types Packs/Day Years Used Date Smoking Tobacco: Never Smokeless Tobacco: Never Tobacco Cessation:Counseling Given: Not Answered Alcohol Use Standard Drinks/Week Comments Not Currently 0 (1 standard drink = 0.6 oz pur e alcohol) Feeling Safe Answer Date Recorded Are you in a relationship wi th someone who hurts you emotionally and/or physically? 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 Gender Identity Not on file Sexual Orientation Not on file Last Filed Vital Signs Vital Sign Reading Time Taken Comments Blood Pressure 94/62 09/23/2024 11:52 AM TRACK MANAGER Pulse 94 08/12/2023 7:39 PM TRACK MANAGER Temperature 36.6 C (97.8 F) 08/12/2023 7:39 PM TRACK MANAGER Respiratory Rate 18 08/12/2023 7:39 PM TRACK MANAGER Oxygen Saturation 100% 08/12/2023 7:39 PM TRACK MANAGER Inhaled Oxygen Concentration - - Weight 71.2 kg (157 lb) 09/23/2024 11:52 AM TRACK MANAGER Height 165.1 cm (5' 5 ) 09/23/2024 11:52 AM TRACK MANAGER Body Mass Index 26.13 09/23/2024 11:52 AM TRACK MANAGER Plan of Treatment Health Maintenance Due Date Last Done Comments HEPATITIS B VACCINES (1 of 3 - 19+ 3-dose series) 2016 CERVICAL CANCER SCREENING 2018 HPV/Cotest (21-29) 2018 PAP SMEAR 2018 INFLUENZA VACCINE (#1) 2024 COVID-19 Vaccine (2023- season) 2024 04/08/2021, 03/18/2021 DTAP/TDAP/TD VACCINES (3 - Td or Tdap) 07/03/2033 07/03/2023, 03/07/2003 HPV VACCINES Aged Out No longer eligi ble based on patient's age to complete this topic RSV VACCINE (60+ or ) (No Doses Required) Completed [place] [address] PLAN MEDICAID RX [employer] Member Subscriber Plan / Payer (Ef fective for All Dates) Name:Lilliana Jesus Relation to Subscriber:Not on file Name:Lilliana Jesus Subscriber ID:Not on file Date of :1995 Payer ID:Not on file Type:RX Commercial Address: [address] Advance Directives For more information, please contact: [phone] * Full Code (Latest Code Status on File) Date Activated Date Inactivated Comments 08/12/2023 8:37 PM 08/13/2023 2:20 AM * Full Code Date Activated Date Inactivated Comments 08/12/2023 8:37 PM 08/12/2023 8:37 PM
--- OUTSIDE RECORDS SUMMARY | 2025-01-02 21:19 | XMS_ITS | Clinical Summary ---
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 Gender Identity Not on file Sexual Orientation Not on file Plan of Treatment Health Maintenance Due Date Last Done Comments Hepatitis C Virus (HCV) Screening 1997 TdaP Immunization 1997 Hepatitis B Immunization (3 of 3 - 3-dose series) 01/25/1998 1997, 1997 Human Papillomavirus (HPV) Immunization (1 - 3-dose series) 2012 Pap Smear 2018 Influenza Immunization (#1) 2024 SARS-COV-2 Immunization ( season) 2024 Respiratory Syncytial Virus (RSV) Immunization (Adult) (1 - 1-dose 75+ series) 2072 DTaP/Tdap/Td Immunization Discontinued 1999, 04/28/1999, 09/22/1998, Additional history exists Pneumococcal Immunization Combined Completed 07/09/2000, 06/08/2000 Meningococcal Immunization (ACWY) Completed 06/07/2015 Rotavirus Immunization Aged Out No lo nger eligible based on patient's age to complete this topic
--- OUTSIDE RECORDS SUMMARY | 2025-01-02 21:19 | XMS_ITS | Clinical Summary ---
Author Organization [facility] Address [address] [place] [address] Care Team Providers Care Peanut Vendor Name Role Phone Unavailable Primary Care Provider Unavailabl e Source Comments [facility],non-owned Affiliates and Associated Physician Practices is amultiple site organization consisting of ambulatory clinics and hospital sitesin [place], [place], [place] and [place]. This disclosure is being madepursuant to the Care Everywhere program and may not contain all information available regarding this patient. Last updated 18.SumZero Allergies No known active allergies Medications * Be aware that medications may not be up to date on this document. Alwaysverify current medications with the patient. lidocaine (Lidoderm) 5 % patch Apply 2 (two) patches to skin once daily Apply patch to most painful area (avoiding stomach) and remove after 12 hours. May reapply a new patch 12 hours later. 10 patch 04/08/2023 Active Social History Tobacco Use Types Packs/Day Years Used Date Smoking Tobacco: Unknown Tobacco Cessation:Counseling Given: Not Answered Alcohol Use Standard Drinks/Week Comments Not Currently 0 (1 standard drink = 0.6 oz pur e alcohol) Comments Unknown Sex and Gender Information Value Date Recorded Sex Assigned at Not on file Legal Sex Female 9:34 AM PERFORATOR LOADER Gender Identity Not on file Sexual Orientation Not on file Last Filed Vital Signs Vital Sign Reading Time Taken Comments Blood Pressure 104/64 04/08/2023 8:44 PM CDT Pulse 85 04/08/2023 8:44 PM CDT Temperature 36.9 C (98.4 F) 04/08/2023 8:44 PM CDT Respiratory Rate 18 04/08/2023 8:44 PM CDT Oxygen Saturation 100% 04/08/2023 8:44 PM CDT Inhaled Oxygen Concentration - - Weight 70.3 kg (155 lb) 04/08/2023 6:16 PM CDT Height 165.1 cm (5' 5 ) 04/08/2023 6:16 PM CDT Body Mass Index 25.79 04/08/2023 6:16 PM CDT Plan of Treatment Health Maintenance Due Date Last Done Comments PAP SMEAR 1997 HIV SCREENING 2012 HEPATITIS C SCREENING 07/23/2015 DTAP/TDAP/TD VACCINES (1 - Tdap) 2016 HEPATITIS B VACCINE (1 of 3 - 19+ 3-dose series) 2016 COVID-19 VACCINE (3 - 2023-2 5 season) 2024 04/08/2021, 03/18/2021 DEPRESSION SCREENING 08/27/2024 INFLUENZA VACCINE (Season Ended) 2025 ZOSTER VACCINE (1 of 2) 2047 HIB VACCINE Aged Out No longer eligi ble based on patient's age to complete this topic HPV VACCINE Aged Out No longer eligi ble based on patient's age to complete this topic MENINGOCOCCAL (Group B) VACCINE SHARED DECISION-MAKING Aged Out No longer eligible based on patient's age to complete this topic MENINGOCOCCAL GROUPS A/C/Y/W VACCINE Aged Out No longer eligible b ased on patient's age to complete this topic PNEUMOCOCCAL VACCINE Aged Out No long er eligible based on patient's age to complete this topic Insurance [facility]
[2025-01-02 21:35] VITALS: BP 141/51; PULSE 98; RESP 16; TEMP 36.4; O2SAT 99
--- NOTE | 2025-01-02 23:39 | ED_ITS ---
HPI - General Adult General Chief complaint: Extremity Injury, Lower Stated complaint: right knee pain Time Seen by Provider: 01/02/25 23:23 History of Present Illness HPI narrative: This is a 29-year-old female presenting with knee pain. Patient says the pain started yesterday. She does not know a precipitating event. The knee is non- painful at rest but she has severe sharp pain with certain movements. No weakness to the leg. No loss of sensation foot. No fevers or swelling. Patient states that she took 1 dose of ibuprofen and Tylenol yesterday but it did not help so she did not take any today. Related Data Allergies Allergy/AdvReac Type Severity Reaction Status Date / Time No Known Allergies Allergy Verified 01/01/25 19:36 [facility] Past Medical History Medical History Patient denies significant medical history Social History Social History Smoking status: Never smoker Alcohol intake: never Exam Narrative: APPEARANCE: No apparent distress. Head: atraumatic. EYES: EOMI, NOSE: Atraumatic NECK: Trachea midline RESPIRATORY: No increased rate of breathing CARDIOVASCULAR: RRR, ABDOMINAL: Non-distended MUSCULOSKELETAl: Focal exam of the right knee revealed no large effusion or warmth to the joint. No overlying skin changes. Compartments of the lower extremity are soft. Pulses are +2 patient. Sensation motor function intact. No joint laxity. Sharp pain during extremes of flexion. NEURO: Alert. Moving 4/4 extremities SKIN:: Warm, dry. Normal color PSYCHIATRIC: Normal affect Course Vital Signs Vital signs: Vital Signs Temperature 97.6 F 01/02/25 21:35 Pulse Rate 98 01/02/25 21:35 Respiratory Rate 16 01/02/25 21:35 Blood Pressure 141/51 H 01/02/25 21:35 Pulse Oximetry 99 01/02/25 21:35 Temperature 97.6 F 01/02/25 21:35 Pulse Rate 98 01/02/25 21:35 Respiratory Rate 16 01/02/25 21:35 Blood Pressure 141/51 H 01/02/25 21:35 Pulse Oximetry 99 01/02/25 21:35 Medical Decision Making [facility] Narrative Medical decision making narrative: -Course: 29-year-old female presenting sharp reproducible knee pain movement. X-rays negative for fracture. Presentation most consistent with a knee sprain/strain. Patient be treated on a conservative course of NSAIDs and muscle relaxers. I suggested primary care follow-up the patient has requested an orthopedic referral. This was provided. -DDX includes but is not limited to: Muscle strain, muscle spasm internal derangement, septic joint Vital Signs Vital Signs: Vital Signs Temperature 97.6 F 01/02/25 21:35 Pulse Rate 98 01/02/25 21:35 Respiratory Rate 16 01/02/25 21:35 Blood Pressure 141/51 H 01/02/25 21:35 Pulse Oximetry 99 01/02/25 21:35 Temperature 97.6 F 01/02/25 21:35 Pulse Rate 98 01/02/25 21:35 Respiratory Rate 16 01/02/25 21:35 Blood Pressure 141/51 H 01/02/25 21:35 Pulse Oximetry 99 01/02/25 21:35 Discharge Plan Discharge Clinical Impression: Acute knee pain Patient Disposition: Home Condition: Stable Instructions: Antibiotic Form, Knee Pain (ED) Additional Instructions: Please use Motrin Tylenol Robaxin for pain control. Please follow-up with your primary care physician 1 week. If your pain is getting worse or develop any new or worsening symptoms please return to the ED. An orthopedic surgeon referral has been provided although I believe you should begin with your primary care physician. Patient Language: Ghanaian Prescriptions: New ibuprofen 800 mg tablet 800 mg PO TID PRN (Reason: pain) 7 Days Qty: 21 0RF acetaminophen 500 mg tablet 1,000 mg PO TID PRN (Reason: rikki) 7 Days Qty: 42 0RF methocarbamol 750 mg tablet 1,500 mg PO TID Qty: 42 0RF Follow-up/Referrals: David Coley MD [Primary Care Provider] - 1 Week Cortez Garza MD [Physician] - 1 Week
[2025-01-02] MEDS: ACETAMINOPHEN 500 MG TABLET 1000 MG PO (23:48)
[2025-01-02] MEDS: IBUPROFEN 400 MG TABLET 800 MG PO (23:48)
[2025-01-02] MEDS: methocarbamoL 750 MG TABLET 1500 MG PO (23:49)
--- OUTSIDE RECORDS SUMMARY | 2025-01-02 23:51 | XMS_ITS | Clinical Summary ---
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
--- OUTSIDE RECORDS SUMMARY | 2025-01-02 23:51 | XMS_ITS | Clinical Summary ---
Author Organization [facility] Address [address] [place] [address] Care Team Providers Care Front Attendant Name Role Phone Unavailable Primary Care Provider Unavailabl e Source Comments [facility],non-owned Affiliates and Associated Physician Practices is amultiple site organization consisting of ambulatory clinics and hospital sitesin [place], [place], [place] and [place]. This disclosure is being madepursuant to the Care Everywhere program and may not contain all information available regarding this patient. Last updated 18.[employer] Allergies No known active allergies Medications * [...] on file Legal Sex Female 9:34 AM SHAREPOINT TRAINER Gender Identity Not on file Sexual Orientation [...] patient's age to complete this topic Insurance [facility] [address]
--- OUTSIDE RECORDS SUMMARY | 2025-01-02 23:51 | XMS_ITS | Clinical Summary ---
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 Active ondansetron [...] Device Data [facility] ABSTRACTION Provider, Abstract 11/17/2024 [facility] [place] [address] [id number] Mackenzie Portillo MD No Show 11/04/2024 External Device Data [facility] ABSTRACTION Provider, Abstract 11/04/2024 External Device Data [facility] ABSTRACTION Provider, Abstract 10/21/2024 External Device Data [facility] ABSTRACTION Provider, Abstract 10/21/2024 [facility] [place] [address] [id number] Mackenzie Portillo MD No Show [...] on file Legal Sex Female 2:47 PM [employer]ERY CHIEF Gender Identity Not on file Sexual Orientation Not on file Last Filed Vital Signs Vital Sign Reading Time Taken Comments Blood Pressure 94/62 09/23/2024 11:52 AM BINDERY CHIEF Pulse 94 08/12/2023 7:39 PM [employer] CHIEF Temperature 36.6 C (97.8 F) 08/12/2023 7:39 PM BINDERY CHIEF Respiratory Rate 18 08/12/2023 7:39 PM BINDERY CHIEF Oxygen Saturation 100% 08/12/2023 7:39 PM BINDERY CHIEF Inhaled Oxygen Concentration - - Weight 71.2 kg (157 lb) 09/23/2024 11:52 AM BINDERY CHIEF Height 165.1 cm (5' 5 ) 09/23/2024 11:52 AM BINDERY CHIEF Body Mass Index 26.13 09/23/2024 11:52 AM BINDERY CHIEF Plan of Treatment Health Maintenance Due Date [...] or ) (No Doses Required) Completed [place] [address] [place] [id number] PLAN MEDICAID RX [employer] Member Subscriber Plan / Payer (Ef fective for All Dates) Name:Lilliana Jesus Relation to Subscriber:Not on file Name:Lilliana Jesus Subscriber ID:Not on file Date of :1995 Payer ID:Not on file Type:RX Commercial Address: [address] Advance Directives For more information, please contact: [phone] * Full Code (Latest Code Status on File) Date Activated Date Inactivated Comments 08/12/2023 8:37 PM 08/13/2023 2:20 AM * Full Code Date Activated Date Inactivated Comments 08/12/2023 8:37 PM 08/12/2023 8:37 PM
[2025-01-03 00:15] VITALS: BP 139/63; PULSE 86; RESP 19; TEMP 36.6; O2SAT 98
[2025-01-03 00:17] VITALS: BP 139/63; PULSE 86; RESP 19; TEMP 36.6; O2SAT 98
== END 2025-01-03 00:20 | disposition home or self-care (01) ==
LOC: ANHED 23:49
PROVIDERS: Emergency Provider Emergency Medicine; PCP Emergency Medicine
DX: M25.561 Pain in right knee (principal)
CPT/HCPCS: 73564; 99283; A9270